=== PATIENT | female | born 1980 | race American Indian/Alaskan Native ===

== ENCOUNTER 2022-04-12 17:22 | Emergency (ER) | payer SELFPAY ==
--- NOTE | 2022-04-12 19:10 | XRay Report ---
CHEST 2 VIEWS INDICATION / CLINICAL INFORMATION: breast pain. COMPARISON: None available. FINDINGS: SUPPORT DEVICES: None. HEART / MEDIASTINUM: No significant abnormality. LUNGS / PLEURA: No significant pulmonary abnormality. No significant pleural effusion. No pneumothora x. ADDITIONAL FINDINGS: No significant additional findings. IMPRESSION: 1. No acute abnormality of the chest. Signer Name: Evens Chi MD Signed: 04/12/2022 7:06 PM Workstation Name: [id number]
[2022-04-12] MEDS ORDERED: KETOROLAC 30 MG/1 ML INJ IV ONE (21:38)
[2022-04-12] MEDS ORDERED: MORPHINE 4 MG/1 ML INJ IV ONE (21:38)
[2022-04-12] MEDS ORDERED: ONDANSETRON 4 MG/2 ML INJ IV ONE (21:38)
[2022-04-12] MEDS ORDERED: SULFAMETHOXAZOLE/TRIMETHOPRIM 800/160MG DS TAB PO ONE (21:39)
[2022-04-12 22:35] LABS: Basophils % (Auto) 0.3 % (0.0-1.8); Eosinophils # (Auto) 0.1 K/mm3 (0.0-0.4); Eosinophils % (Auto) 0.7 % (0.0-4.3); Hematocrit 30.7 % (30.3-42.9); Hemoglobin 10.7 gm/dl (10.1-14.3); Lymphocytes # (Auto) 1.3 K/mm3 (1.2-5.4); Lymphocytes % (Auto) 14.3 % (13.4-35.0); Mean Corpuscular HGB Conc 35 % (30-34); Mean Corpuscular Volume 106 fl (79-97); Monocytes % (Auto) 11.2 % (0.0-7.3); Red Cell Distribution Width 13.5 % (13.2-15.2)
[2022-04-12 22:48] LABS: Alanine Aminotransferase 8 units/L (7-56); Albumin 4.1 g/dL (3.9-5); BUN/Creatinine Ratio 23; Blood Urea Nitrogen 18 mg/dL (7-17); Calcium 8.7 mg/dL (8.4-10.2); Hemolysis Index 42
[2022-04-12 22:50] LABS: Platelet Count 91 K/mm3 (140-440)
--- NOTE | 2022-04-12 23:15 | Emergency Department Report ---
ED General Adult HPI - General Chief complaint: Pain General Stated complaint: SHARP PAIN IN LEFT BREAST (SWOLLEN) Source: patient Mode of arrival: Ambulatory Limitations: No Limitations - History of Present Illness Initial comments: Patient is a 41-year-old -[place] female with no past medical history presents to the ED with complaint of acute onset persistent painful swelling mild erythematous rash on left breast areola and now spreading to the entire breast for the last 1 month. Patient states that the purulent discharge and the redness got worse in the last 3 days. Patient states that she has been taking [id number] medication for pain with no relief. Patient denies dizziness, syncope, chest pain or shortness of breath, nausea and vomiting, cough, sore throat, traumatic injury, neck pain, numbness and tingling or weakness of upper and lower extremities bilaterally or abdominal pain, fever and chills. MD Complaint: left breast swollen painful rash with purulent discharge -: Gradual, month(s) (1) Location: chest (left breast) Radiation: non-radiation Severity scale (0 -10): 8 Quality: aching, sharp Consistency: constant Improves with: none Worsens with: movement, other (palpation) Associated Symptoms: denies other symptoms, rash (Swollen, painful erythematous maculopapular fluctuant rash on left breast with purulent discharge). denies: chest pain, cough, diaphoresis, fever/chills, headaches, loss of appetite, malaise, nausea/vomiting, seizure, shortness of breath, syncope, weakness Treatments Prior to Arrival: NSAID - Related Data Previous Rx's Medication Instructions Recorded Last Taken Type Acetaminophen/Codeine [Tylenol 1 tab PO Q6H PRN #12 tab 04/12/22 Unknown Rx /Codeine # 3 tab] Clindamycin [Clindamycin CAP] 300 mg PO Q8H #30 cap 04/12/22 Unknown Rx Ibuprofen [Motrin] 600 mg PO Q8H PRN #30 tablet 04/12/22 Unknown Rx Sulfamethoxazole/Trimethoprim 1 each PO Q12H #20 tab 04/12/22 Unknown Rx [Bactrim DS TAB] Allergies Allergy/AdvReac Type Severity Reaction Status Date / Time No Known Allergies Allergy Verified 04/12/22 18:36 ED Review of Systems ROS: Stated complaint: SHARP PAIN IN LEFT BREAST (SWOLLEN) Other details as noted in HPI Constitutional: denies: chills, fever Eyes: denies: eye pain, eye discharge, vision change ENT: denies: ear pain, throat pain Respiratory: denies: cough, shortness of breath, wheezing Cardiovascular: denies: chest pain, palpitations Endocrine: no symptoms reported Gastrointestinal: denies: abdominal pain, nausea, vomiting, diarrhea Genitourinary: denies: urgency, dysuria, discharge Musculoskeletal: denies: back pain, joint swelling, arthralgia Skin: rash (Swollen, painful, mild erythematous maculopapular rash on left breast with purulent discharge), change in color. denies: lesions Neurological: denies: headache, weakness, paresthesias Psychiatric: denies: anxiety, depression Hematological/Lymphatic: denies: easy bleeding, easy bruising ED Past Medical Hx - Medications Home Medications: Home Medications Medication Instructions Recorded Confirmed Last Taken Type Acetaminophen/Codeine [Tylenol 1 tab PO Q6H PRN #12 tab 04/12/22 Unknown Rx /Codeine # 3 tab] Clindamycin [Clindamycin CAP] 300 mg PO Q8H #30 cap 04/12/22 Unknown Rx Ibuprofen [Motrin] 600 mg PO Q8H PRN #30 tablet 04/12/22 Unknown Rx Sulfamethoxazole/Trimethoprim 1 each PO Q12H #20 tab 04/12/22 Unknown Rx [Bactrim DS TAB] ED Physical Exam - General Limitations: No Limitations General appearance: alert, in no apparent distress - Head Head exam: Present: atraumatic, normocephalic, normal inspection - Eye Eye exam: Present: normal appearance, PERRL, EOMI Pupils: Present: normal accommodation - ENT ENT exam: Present: normal exam, normal orophraynx, mucous membranes moist, TM's normal bilaterally, normal external ear exam - Neck Neck exam: Present: normal inspection, full ROM. Absent: tenderness - Respiratory Respiratory exam: Present: normal lung sounds bilaterally, chest wall tenderness (Left breast tenderness), other (Palpable tenderness of left breast with swelling due to erythematous maculopapular fluctuant rash with purulent discharge). Absent: respiratory distress, wheezes, rales, rhonchi, accessory muscle use, decreased breath sounds - Cardiovascular Cardiovascular Exam: Present: regular rate, normal rhythm. Absent: systolic murmur, diastolic murmur, rubs, gallop - GI/Abdominal GI/Abdominal exam: Present: soft, normal bowel sounds. Absent: tenderness, guarding, rebound, hyperactive bowel sounds, hypoactive bowel sounds, organomegaly - Extremities Exam Extremities exam: Present: normal inspection, full ROM, normal capillary refill. Absent: tenderness, pedal edema, joint swelling, calf tenderness - Back Exam Back exam: Present: normal inspection, full ROM. Absent: tenderness, CVA tenderness (R), CVA tenderness (L), muscle spasm, paraspinal tenderness, vertebral tenderness - Neurological Exam Neurological exam: Present: alert, oriented X3, CN II-XII intact, normal gait, reflexes normal - Psychiatric Psychiatric exam: Present: normal affect, normal mood - Skin Skin exam: Present: warm, dry, intact, rash (Mild erythematous maculopapular flu ctuant tender rash on left breast with purulent discharge), erythema, other (Female RN Anthonymichelle present as a caddy packer during the physical exam). Absent: normal color ED Course Vital Signs 04/12/22 04/13/22 18:37 00:34 Temperature 99.1 F Pulse Rate 89 91 H Respiratory 16 12 Rate Blood Pressure 115/75 127/79 [Left] O2 Sat by Pulse 99 100 Oximetry - I & D Left Breast Type of Procedure: Simple Site: left breast Blade Size: 18 gauge needle I & D Procedure: betadine prep, sterile drapes applied, sterile dressing applied, gauze wick placed Progress: The area was cleaned with normal saline and alcohol wipes. 1% lidocaine solution was used as a local anesthetics for a total of 6 cc. When anesthesia was fully achieved, 18-gauge needle was used to aspirate the contents of the abscess. Thick copious yellowish-green mucopurulent discharge drained from the wound. The wound was then debrided extensively with normal saline and packed with sterile gauze. The wound was then dressed appropriately and the patient was discharged home on pain medication and antibiotics. Patient was advised to return to the ED immediately if symptoms get worse. Otherwise follow-up with her primary care physician in 7 to 10 days for reevaluation. ED Medical Decision Making - Lab Data Result diagrams: 04/12/22 22:08 04/12/22 22:08 - Medical Decision Making This is a 41-year-old -[place] female with no past medical history presents to the ED with complaint of acute onset persistent painful swelling mild erythematous rash on left breast areola and now spreading to the entire breast for the last 1 month. Patient states that the purulent discharge and the redness got worse in the last 3 days. Patient states that she has been taking zahw-yfk-[id number] medication for pain with no relief. In the ED, patient is alert and oriented x3 and is not in any distress. Patient is hemodynamically stable. Patient was treated for pain in the ED and also given a antibiotics. Lab test results were reviewed and are all nonactionable. The abscess was cleaned with normal saline and Betadine solution and lidocaine 1% solution used as a local anesthetic. The abscess was then drained using needle aspiration technique and patient tolerated the procedure well. The wound was then e xtensively debrided with normal saline and dressed appropriately. Patient was discharged home on pain medications and antibiotics and advised to follow-up with her primary care physician in 7 to 10 days for reevaluation or return to the ED immediately if symptoms get worse. - Differential Diagnosis Mastitis; cellulitis; cutaneous abscess; folliculitis Critical care attestation.: If time is entered above; I have spent that time in minutes in the direct care of this critically ill patient, excluding procedure time. ED Disposition Clinical Impression: Cellulitis of left breast, Nonpuerperal abscess of left breast, Acute folliculitis Disposition: 01 HOME / SELF CARE / HOMELESS Is pt being admited?: No Does the pt Need Aspirin: No Condition: Stable Instructions: Skin Abscess, [id number], Cellulitis, Adult, Ejiy-av-[id number], Folliculitis Additional Instructions: All lab test results were reviewed and are all nonactionable. Therefore take medication with food, drink plenty of fluids, follow-up with your primary care physician in 7 to 10 days for reevaluation. Consider following up with the [employer] physician for a mammogram. Return to the ED immediately if symptoms get worse. Prescriptions: Sulfamethoxazole/Trimethoprim [Bactrim DS TAB] 1 each PO Q12H #20 tab Clindamycin [Clindamycin CAP] 300 mg PO Q8H #30 cap Ibuprofen [Motrin] 600 mg PO Q8H PRN #30 tablet PRN Reason: Pain Acetaminophen/Codeine [Tylenol /Codeine # 3 tab] 1 tab PO Q6H PRN #12 tab PRN Reason: Pain , Severe (7-10) [facility] - 7-10 days Forms: Work/School Release Form(ED) Time of Disposition: 23:19 Print Language: SWEDISH
[2022-04-12] MEDS ORDERED: LIDOCAINE (1%) 10 MG/1 ML VIAL 20 ML MDV INFILTRATI ONE (23:50)
[2022-04-13 00:35] VITALS: BP 127/79
== END 2022-04-13 00:35 | disposition home or self-care (01) ==
LOC: ED 17:22
DX: N61.0 Mastitis without abscess (principal); N61.1 Abscess of the breast and nipple; L73.9 Follicular disorder, unspecified
CPT/HCPCS: 10060; 36415; 71046; 80053; 85025; 96365; 96375; 99284; J1885; J2270; J2405; J7502

== ENCOUNTER 2022-07-02 07:29 | Emergency (ER) | payer BC ==
[2022-07-02 07:34] VITALS: BP 140/92
--- NOTE | 2022-07-02 08:25 | XRay Report ---
LEFT WRIST 3 VIEWS INDICATION: pain. Fall. COMPARISON: None. IMPRESSION: There is moderate diffuse soft tissue swelling. No displaced fracture, malalignment or s ignificant joint pathology is detected. Signer Name: Vega Avila Jr, MD Signed: 07/02/2022 8:21 AM Workstation Name: [id number]
[2022-07-02] MEDS ORDERED: oxyCODONE /ACETAMINOPHEN 5-325MG TAB PO ONE (09:57)
[2022-07-02] MEDS ORDERED: KETOROLAC 10 MG TAB PO ONE (09:57)
--- NOTE | 2022-07-02 10:20 | Emergency Department Report ---
ED Upper Extremity Inj HPI - General Chief Complaint: Extremity Injury, Upper Stated Complaint: LT WRIST INJURY Time Seen by Provider: 07/02/22 09:27 Source: patient, EMS Mode of arrival: Stretcher Limitations: No Limitations - History of Present Illness Initial Comments: 41-year-old black female presents to the emergency department for evaluation of left wrist pain. She states that she fell at home yesterday and has had left wrist pain and swelling since then. She denies loss of consciousness and states that pain is 10 on a 10 point scale. MD Complaint: Injury to:: left, wrist -: Sudden, Last night Other Extremity Injury: Wrist: Left Other Injuries: none Place: home Severity scale (0 -10): 10 Worsens With: movement of extremity Context: fall Associated Symptoms: denies: weakness, numbness, neck pain Treatments Prior to Arrival: splint - Related Data Previous Rx's Medication Instructions Recorded Last Taken Type Acetaminophen/Codeine [Tylenol 1 tab PO Q6H PRN #12 tab 04/12/22 Unknown Rx /Codeine # 3 tab] Clindamycin [Clindamycin CAP] 300 mg PO Q8H #30 cap 04/12/22 Unknown Rx Ibuprofen [Motrin] 600 mg PO Q8H PRN #30 tablet 04/12/22 Unknown Rx Sulfamethoxazole/Trimethoprim 1 each PO Q12H #20 tab 04/12/22 Unknown Rx [Bactrim DS TAB] Ketorolac [Toradol] 10 mg PO Q6H PRN #12 tab 07/02/22 Unknown Rx Allergies Allergy/AdvReac Type Severity Reaction Status Date / Time No Known Allergies Allergy Verified 07/02/22 07:34 ED Review of Systems ROS: Stated complaint: LT WRIST INJURY Other details as noted in HPI Comment: All other systems reviewed and negative Respiratory: denies: shortness of breath Cardiovascular: denies: chest pain, palpitations Gastrointestinal: denies: abdominal pain Musculoskeletal: denies: back pain Neurological: denies: headache ED Past Medical Hx - Past Medical History Hx Psychiatric Treatment: Yes (ANXIETY; DEPRESSION) - Social History Smoking Status: Current Every Day Smoker Substance Use Type: None - Medications Home Medications: Home Medications Medication Instructions Recorded Confirmed Last Taken Type Acetaminophen/Codeine [Tylenol 1 tab PO Q6H PRN #12 tab 04/12/22 Unknown Rx /Codeine # 3 tab] Clindamycin [Clindamycin CAP] 300 mg PO Q8H #30 cap 04/12/22 Unknown Rx Ibuprofen [Motrin] 600 mg PO Q8H PRN #30 tablet 04/12/22 Unknown Rx Sulfamethoxazole/Trimethoprim 1 each PO Q12H #20 tab 04/12/22 Unknown Rx [Bactrim DS TAB] Ketorolac [Toradol] 10 mg PO Q6H PRN #12 tab 07/02/22 Unknown Rx ED Physical Exam - General Limitations: No Limitations General appearance: alert, in no apparent distress - Head Head exam: Present: atraumatic, normocephalic - Eye Eye exam: Present: normal appearance - Neck Neck exam: Present: normal inspection. Absent: tenderness - Respiratory Respiratory exam: Absent: respiratory distress - Cardiovascular Cardiovascular Exam: Present: regular rate - GI/Abdominal GI/Abdominal exam: Absent: distended, tenderness - Expanded Upper Extremity Exam Left Upper Arm exam: Present: normal inspection Elbow exam: Present: normal inspection Forearm Wrist exam: Present: normal inspection Hand Wrist exam: Present: tenderness, swelling. Absent: full ROM, laceration, ecchymosis, deformity, dislocation, erythema, amputation, nail avulsion, subungual hematoma Vascular: Present: normal capillary refill, radial pulse. Absent: vascular comp romise, Pallo - Back Exam Back exam: Present: normal inspection. Absent: tenderness - Neurological Exam Neurological exam: Present: alert, oriented X3 - Psychiatric Psychiatric exam: Present: normal affect, normal mood - Skin Skin exam: Present: warm, dry, intact, normal color ED Course Vital Signs 07/02/22 07/02/22 07:33 09:46 Temperature 98.6 F Pulse Rate 78 Respiratory 16 16 Rate Blood Pressure 140/92 [Left] O2 Sat by Pulse 99 98 Oximetry - Orthopedic Splinting/Casting Injury #1 Upper Extremity Injury Location: wrist Upper Extremity Immobilizer: wrist splint (Preformed Velcro wrist splint) Additional Comments: CMS intact after application. Patient tolerated well. ED Medical Decision Making - Radiology Data Radiology results: report reviewed, image reviewed Left wrist x-ray: IMPRESSION: There is moderate diffuse soft tissue swelling. No displaced fracture, malalignment or significant joint pathology is detected. - Medical Decision Making 41-year-old black female presents to the emergency department for evaluation of left wrist pain. She states that she fell at home yesterday and has had left wrist pain and swelling since then. She denies loss of consciousness and states that pain is 10 on a 10 point scale. Left wrist x-ray without any acute abnormalities noted. Patient placed in a preformed Velcro wrist splint and advised to follow-up with orthopedics if no improvement or worsening symptoms. She is advised to return to the emergency department as needed. She verbalizes understanding of and agreement with plan of care. Critical care attestation.: If time is entered above; I have spent that time in minutes in the direct care of this critically ill patient, excluding procedure time. ED Disposition Clinical Impression: Left wrist pain Fall Qualifiers: Encounter type: initial encounter Qualified Code(s): W19.XXXA - Unspecified fall, initial encounter Disposition: HOME / SELF CARE / HOMELESS Is pt being admited?: No Does the pt Need Aspirin: No Condition: Stable Instructions: Wrist Pain, Adult, [id number], Musculoskeletal Pain, Wrist Splint, Adult, [id number] Additional Instructions: Take medications as prescribed. Follow-up with orthopedics if no improvement or worsening symptoms. Return to the emergency department as needed. Prescriptions: Ketorolac [Toradol] 10 mg PO Q6H PRN #12 tab PRN Reason: Pain Referrals: LUIS NICK MD [Staff Physician] - 3-5 Days Forms: Work/School Release Form(ED) Time of Disposition: 10:23
== END 2022-07-02 11:05 | disposition home or self-care (01) ==
LOC: ED 07:29
DX: M25.532 Pain in left wrist (principal); F31.9 Bipolar disorder, unspecified; F17.200 Nicotine dependence, unspecified, uncomplicated; W19.XXXA Unspecified fall, initial encounter; Y93.89 Activity, other specified; Y92.89 Other specified places as the place of occurrence of the external cause; Y99.8 Other external cause status
CPT/HCPCS: 99284